=== PATIENT | male | born 1975 | race Caucasian/White ===

== ENCOUNTER 2023-03-06 10:57 | Day surgery (SDC) | payer BC, SELFPAY ==
[2023-03-06] VITALS (10 sets, daily range): BP systolic 132–147; BP diastolic 90–107; PULSE 70–89; RESP 15–16; TEMP 36.3–36.8; O2SAT 95–99; BMI 31.7
[2023-03-06] MEDS: LACTATED RINGERS 1000 ML 1,000 ML 100 ML IV (11:00)
[2023-03-06] MEDS: OXYMETAZOLINE 0.05% NASAL SPRAY 2 SPRAY NOSTRIL-B (11:03)
[2023-03-06] MEDS: COCAINE HCL 4 % 4 ML SOLUTION NOSTRIL-B (12:35)
[2023-03-06] MEDS: MUPIROCIN 1 GM PACKET 1 APPLIC TOPICAL (12:39)
[2023-03-06] MEDS: BUPIVACAINE 0.5%/EPINEPHRINE 0.9 MG (30.9 ML) INJECTION (12:45)
--- NOTE | 2023-03-06 12:57 | W.ANESCHARGE ---
Anesthesia Charges Start Date/Time Anesthesia Start Date: 03/06/23 Anesthesia Start Time: 12:15 Stop Date/Time Anesthesia Stop Date: 03/06/23 Anesthesia Stop Time: 12:56
--- NOTE | 2023-03-06 13:29 | SUR.PHASEI ---
patient met discharge criteria per anesthesia
--- NOTE | 2023-03-06 13:44 | P.ENTPROC_ITS ---
Procedure Note Date of procedure: 03/06/23 Procedure: Preop diagnosis recurrent bilateral maxillary rhinosinusitis postoperative diagnosis same Procedure bilateral maxillary antrostomies with tissue removal. Endoscopy and the [employer] image guidance system was used. Under general endotracheal anesthesia the patient was prepped and draped in usual fashion and the nose decongested and injected. The inferior quarter the left uncinate process was taken down exposing natural ostium to maxillary sinus. This was enlarged 9 mm diameter. Was occluded by polyp tissue. There is minimal polyp tissue in the sinus itself. On the right side he had a previous antrostomy slightly below natural os. The inferior quarter the uncinate process was taken down in these openings were connected any ended up with a 1 cm antrostomy. A small amount of polyp tissue was removed from the floor of the sinus. Dissolvable packing was placed in the middle meatus on both sides. The patient opted was taken recovery in satisfactory condition. Blood loss during procedure less than 10 mL. Surgeon: Jem Roa MD
== END 2023-03-06 15:05 | disposition home or self-care (01) ==
PROVIDERS: Visit Provider Otolaryngology
PROC: (CPT 31231; principal; 2023-03-06 12:15)
DX: J32.0 Chronic maxillary sinusitis (principal)
CPT/HCPCS: 31267; 00170; 88305; 88311; A9270; J0330; J1100; J2250; J2405; J2704; J3010; J7120